=== PATIENT | female | born 1975 | race Caucasian/White ===

== ENCOUNTER 2019-10-28 16:05 | Outpatient (CLI) | payer OTHER, SELFPAY ==
--- NOTE | ~2019-10-28 | XR_ITS ---
EXAMINATION: XR chest 2V EXAM DATE: 10/28/2019 16:33 INDICATION: Pleurisy, painful inspiration. TECHNIQUE: Frontal and lateral projections of the chest obtained and reviewed. There is no prior kisha dy for comparison. FINDINGS: The lungs are clear. There are no pleural effusions. The cardiomediastinal silhouette is within normal limits. There is no pneumothorax suspected. The bones and soft tissues are unremarkab le. There are cholecystectomy clips. IMPRESSION: No acute cardiopulmonary findings. Reviewed, dictated and finalized at location A.
== END 2019-10-28 16:06 | disposition home or self-care (01) ==
LOC: ANHIMG 16:10
PROVIDERS: PCP Family Medicine; Visit Provider Family Medicine
DX: R07.1 Chest pain on breathing (principal)
CPT/HCPCS: 71046

== ENCOUNTER 2020-03-16 07:27 | Emergency (ER) | payer OTHER, SELFPAY ==
[2020-03-16 07:40] VITALS: BP 132/87; PULSE 71; RESP 18; TEMP 36.8; O2SAT 100
--- NOTE | 2020-03-16 07:40 | ED.NECK ---
HPI - Neck Pain/Injury General Chief Complaint: Neck Pain/Injury Stated Complaint: NECK AND BACK PAIN X2 WEEKS Time Seen by Provider: 03/16/20 07:40 History of Present Illness HPI Narrative: Pain on the left side of the neck for the past 2 weeks. Progressively worse. Spreading into the left trapezius and rhomboid. Pain is worse with movement of the arm or neck. Started after painting her kitchen. She has tried Motrin and Aleve without improvment. No trauma, weakness, numbness, fever. Related Data Allergies Allergy/AdvReac Type Severity Reaction Status Date / Time No Known Allergies Allergy Unverified 03/16/20 07:48 Review of Systems Review of Systems: All systems reviewed & are unremarkable except as noted in HPI and below Constitutional: Constitutional: Denies fever(s) and Denies weakness Cardiovascular: Cardiovascular: Denies chest pain Respiratory: Respiratory: Denies dyspnea Gastrointestinal: Gastrointestinal: Denies abdominal pain Genitourinary: Genitourinary: Denies flank pain Musculoskeletal: Musculoskeletal: Reports back pain Comments: neck pain Neurologic: Denies dizziness, Denies numbness and Denies weakness [facility] Family History Family History Grandparent Cerebrovascular accident Other Diabetes mellitus Family history of cardiovascular disease Family history of coronary artery disease Family history of gallbladder disease Family history of lupus erythematosus Family history of malignant neoplasm of breast Family history of malignant neoplasm of cervix Family history of malignant neoplasm of ovary Family history of primary malignant neoplasm of liver Social History Social History Second hand tobacco smoke exposure: No Alcohol intake: never Gender identity (if verbalized by the patient): Female Exam Const: General: healthy appearing, no acute distress and alert Orientation/consciousness: patient oriented x3 HENMT: Head: normal to inspection Neck: Neck: normal visual inspection Resp: Effort & Inspection: normal respiratory effort Auscultation: clear to auscultation bilaterally Cardio: Rate: regular rate Rhythm: regular rhythm GI: GI Palp: Yes Soft to palpation and No Tenderness to palpation present (GI) Course Vital Signs Vital signs: Vital Signs Temperature 36.8 C 03/16/20 07:40 Pulse Rate 71 03/16/20 07:40 Respiratory Rate 18 03/16/20 07:40 Blood Pressure 132/87 03/16/20 07:40 Pulse Oximetry 100 03/16/20 07:40 Temperature 36.8 C 03/16/20 07:40 Pulse Rate 77 03/16/20 10:10 Respiratory Rate 18 03/16/20 10:10 Blood Pressure 141/99 H 03/16/20 10:10 Pulse Oximetry 98 03/16/20 10:10 MDM - Neck Pain/Injury MDM Narrative Medical decision making narrative: No trauma, normal neuro exam. No indication for imaging. Mild improvement with valium. I will prescribe a few days worth and have her follow-up with her PCP. Medical Records Attestation: I reviewed the patient's medical records. Lab Data Attestation: I reviewed the patient's lab results. Imaging Data Attestation: I personally reviewed and interpreted this imaging study as follows: Discharge Plan Discharge Clinical Impression: Strain of neck muscle Qualifiers: Encounter type: initial encounter Qualified Code(s): S16.1XXA - Strain of muscle, fascia and tendon at neck level, initial encounter Patient Disposition: Home, Self-Care Condition: Stable Instructions: Cervical Strain (ED) Prescriptions: New diazepam [Valium] 2 mg tablet 2 - 4 mg PO TID PRN (Reason: muscle spasm) Qty: 15 RF: 0 methylprednisolone [Medrol (Marek)] 4 mg tablets,dose pack See Rx Instructions .ROUTE .COMPLEX Qty: 21 RF: 0 Follow-up/Referrals: Jerry Sanabria MD [Primary Care Provider] - Discharge Date/Time: 03/16/20 10:10
[2020-03-16] MEDS: ACETAMINOPHEN 500 MG TABLET 1000 MG PO (08:31)
[2020-03-16] MEDS: diazePAM INJ (*CRX) 10 MG/2 ML SYRINGE IM (08:32)
[2020-03-16 10:10] VITALS: BP 141/99; PULSE 77; RESP 18; O2SAT 98
== END 2020-03-16 10:10 | disposition home or self-care (01) ==
PROVIDERS: Emergency Provider Emergency Medicine; PCP Family Medicine
DX: S16.1XXA Strain of muscle, fascia and tendon at neck level, initial encounter (principal); X50.9XXA Other and unspecified overexertion or strenuous movements or postures, initial encounter
CPT/HCPCS: 96372; 99284; A9270; J1100; J3360

== ENCOUNTER 2020-03-19 10:16 | Outpatient (CLI) | payer OTHER, SELFPAY ==
--- NOTE | ~2020-03-19 | XR_ITS ---
XR cervical spine 4-5V DATE: 03/19/2020 10:40 INDICATION: Left-sided neck pain, radiculopathy. Tingling in hand. TECHNIQUE: AP, open-mouth, lateral, swimmer views COMPARISON: 07/16/2013 cervical spine FINDINGS: Normal alignment of the cervical spine. C1 and C2 are normally aligned and the odontoid pr ocess is intact. Cervical interspaces are well preserved. No prevertebral soft tissue swelling is d etected. IMPRESSION: Negative Reviewed, dictated and finalized at location B. IMPRESSION: Negative
== END 2020-03-19 10:17 | disposition home or self-care (01) ==
PROVIDERS: PCP Family Medicine; Visit Provider Family Medicine
DX: M54.12 Radiculopathy, cervical region (principal)
CPT/HCPCS: 72050

== ENCOUNTER 2021-06-15 13:56 | Emergency (ER) | payer OTHER, SELFPAY ==
--- NOTE | ~2021-06-15 | XR_ITS ---
EXAMINATION: XR chest 2V EXAM DATE: 06/15/2021 14:20 INDICATION: post covid cough sometimes productive TECHNIQUE: Frontal and lateral projections of the chest obtained and reviewed. Comparison is made to prior examination from 10/28/2019. FINDINGS: Some small left lung linear opacities probably atelectasis or scarring. The lungs are othe rwise clear. There are no pleural effusions. The cardiomediastinal silhouette is within normal limi ts. There is no pneumothorax suspected. The bones and soft tissues are unremarkable. There are cho lecystectomy clips. IMPRESSION: Small regions left mid and lower lung zone atelectasis or scarring. Reviewed, dictated and finalized at location A. [employer]
[2021-06-15 14:09] VITALS: BP 158/88; PULSE 114; RESP 16; TEMP 36.7; O2SAT 99
--- NOTE | 2021-06-15 14:47 | ED.URI ---
HPI - URI/Sore Throat General Chief Complaint: Upper Respiratory Infection Stated Complaint: COUGH Time Seen by Provider: 06/15/21 14:47 Source: patient, RN notes reviewed and old records reviewed Mode of arrival: ambulatory Limitations: no limitations History of Present Illness HPI Narrative: 45-year-old female who just got over Covid presents to the [facility] with complaints of a cough. Patient states that she was diagnosed with Covid. On June 06, tested positive with the PCR in June 07. States her symptoms started 03 June with a cough, congestion and just generalized fatigue. States she just cannot get rid of this cough and wants a further evaluation. Related Data Allergies Allergy/AdvReac Type Severity Reaction Status Date / Time No Known Allergies Allergy Unverified 03/16/20 07:48 Review of Systems Review of Systems: All systems reviewed & are unremarkable except as noted in HPI and below Constitutional: Constitutional: Reports no additional constitutional complaints, Denies chills and Denies fever(s) Eyes: Eyes: Reports no additional eye complaints ENT: Reports system reviewed and no additional complaints, except as documented and Denies sore throat Cardiovascular: Cardiovascular: Reports no additional cardiovascular complaints and Denies chest pain Respiratory: Respiratory: Reports as per HPI, Denies chest congestion, Reports cough, Denies dyspnea and Denies wheezing Gastrointestinal: Gastrointestinal: Reports no additional gastrointestinal complaints, Denies abdominal pain, Denies nausea and Denies vomiting Musculoskeletal: Musculoskeletal: Reports no additional musculoskeletal complaints and Denies back pain Integumentary/Breasts: Skin/Breast: Reports system reviewed and no additional complaints, except as docu Neurologic: Reports system reviewed and no additional complaints, except as documented Psychiatric: Psychiatric: Reports no additional psychiatric complaints Allergic/Immunologic: Allergic/Immunologic: Reports no additional allergic/immunologic complaints [facility] Past Medical History Medical History (Updated 06/15/21 @ 20:15 by Norma Ames) Patient denies significant medical history Surgical History Surgical History (Updated 06/15/21 @ 20:15 by Norma Ames) No pertinent past surgical history Family History Family History Grandparent Cerebrovascular accident Other Diabetes mellitus Family history of cardiovascular disease Family history of coronary artery disease Family history of gallbladder disease Family history of lupus erythematosus Family history of malignant neoplasm of breast Family history of malignant neoplasm of cervix Family history of malignant neoplasm of ovary Family history of primary malignant neoplasm of liver Social History Social History Second hand tobacco smoke exposure: No Alcohol intake: never Gender identity (if verbalized by the patient): Female Comments At the time of my signature, I reviewed and agree with the nursing past medical, surgical, social, and family history. There is no relevant family history pertinent to the patient complaint. Exam Const: General: healthy appearing, no acute distress and alert Nutritional Appearance: well nourished and obese Orientation/consciousness: patient oriented x3 Limitations: no limitations HENMT: Head: normal to inspection Ears: external ears normal, TM's normal bilaterally and EAC's normal Eyes: Conjunctivae: conjunctivae normal Pupils: Equal, round and reactive pupils present Neck: Neck: normal visual inspection, no lymphadenopathy and no meningeal signs Chest: Chest palpation & inspection: normal inspection of the chest Resp: Effort & Inspection: normal respiratory effort and no use of accessory muscles Auscultation: clear to auscultation bilaterally, no crackles, no rales, no
== END 2021-06-15 15:02 | disposition home or self-care (01) ==
PROVIDERS: Emergency Provider Nurse Practitioner
DX: J98.11 Atelectasis (principal); J40 Bronchitis, not specified as acute or chronic
CPT/HCPCS: 71046; 99213; G0463

== ENCOUNTER 2022-02-17 17:17 | Emergency (ER) | payer OTHER, SELFPAY ==
[2022-02-17 17:24] VITALS: BP 132/83; PULSE 79; RESP 16; TEMP 37; O2SAT 100
--- NOTE | 2022-02-17 17:56 | ED.EAR ---
HPI - Ear Problem General Chief complaint: Ear Stated complaint: ear pain Time Seen by Provider: 02/17/22 17:34 Source: patient Mode of arrival: ambulatory Limitations: no limitations History of Present Illness HPI Narrative: 46-year-old female who presents to [facility] care with complaints of ear pain for one day duration with right ear starting yesterday and her left ear starting today. Patient verbalizes past history of ear problems reports that she has never had ear tubes. Patient reports some nasal congestion and drainage has been using flonase and Claritin for these symptoms and oral analgesic OTC for her ear pain. MD Complaint: ear pain and other (sinus drainage and congestion) Location: bilateral Duration: constant Severity: severe Discharge from ear: Reports no Treatment prior to arrival: oral analgesic Related Data Allergies Allergy/AdvReac Type Severity Reaction Status Date / Time No Known Allergies Allergy Unverified 02/17/22 17:32 Review of Systems Review of Systems: CONSTITUTIONAL: Denies fever, chills, or sweats. EYES: Denies visual changes, redness, or discharge. ENT: Positive for rhinorrhea, congestion,no sore throat, positive for bilateral otalgia. CARDIOVASCULAR: Denies chest pain, palpitations, or edema. RESPIRATORY: Denies cough or dyspnea. GASTROINTESTINAL: Denies abdominal pain, nausea, vomiting, or diarrhea. GENITOURINARY: Denies dysuria or hematuria. SKIN: Denies rash or itching. MUSCULOSKELETAL: Denies back pain, joint pain, or myalgia. NEUROLOGIC: Denies headache, numbness, or weakness. PSYCHIATRIC: Denies anxiety or depression. All systems reviewed & are unremarkable except as noted in HPI and below PMFSH Past Medical History Medical History (Updated 02/20/22 @ 12:46 by Theresa Canada NP) Endometriosis Finger amputation, traumatic Kidney stone Surgical History Surgical History (Updated 02/20/22 @ 12:42 by Theresa Canada NP) H/O: hysterectomy History of cholecystectomy Hx of appendectomy Family History Family History Grandparent Cerebrovascular accident Other Diabetes mellitus Family history of cardiovascular disease Family history of coronary artery disease Family history of gallbladder disease Family history of lupus erythematosus Family history of malignant neoplasm of breast Family history of malignant neoplasm of cervix Family history of malignant neoplasm of ovary Family history of primary malignant neoplasm of liver Social History Social History Second hand tobacco smoke exposure: No Alcohol intake: never Gender identity (if verbalized by the patient): Female Comments At time of signature, agree with nursing past medical, surgical, social and family history. There is no relevant family history pertinent to the presenting complaint Exam Narrative: GENERAL: Well-appearing, well-nourished, and in no acute distress. HEAD: Normocephalic, atraumatic. EYES: PERRLA and EOMI. ENT: Nares with mild redness, clear rhinorrhea no epistaxis. Mucous membranes moist.TM's red and bulging no drainage noted,Throat pink with no redness or lesions or tonsil swelling NECK: Supple.no lymphadenopathy CHEST: Clear to auscultation. No respiratory distress.SAO2 100% on room air HEART: Regular rate and rhythm. No murmur heard. Normal peripheral pulses. ABDOMEN: Soft, nontender, nondistended, normal active bowel sounds. EXTREMITIES: Normal range of motion. No edema. SKIN: Warm, dry, no rash. NEURO: No focal deficits. Alert and oriented x3. Course Course Level of Care: Express Care Visit Vital Signs Vital signs: Vital Signs Temperature 37.0 C 02/17/22 17:24 Pulse Rate 79 02/17/22 17:24 Respiratory Rate 16 02/17/22 17:24 Blood Pressure 132/83 02/17/22 17:24 Pulse Oximetry 100 02/17/22 17:24 Oxygen Delivery Room Air 02/17/22 17:24
== END 2022-02-17 18:11 | disposition home or self-care (01) ==
PROVIDERS: Emergency Provider Registered Nurse
DX: H66.93 Otitis media, unspecified, bilateral (principal); N80.9 Endometriosis, unspecified
CPT/HCPCS: 99213; G0463

== ENCOUNTER 2022-07-18 09:00 | Emergency (ER) | payer OTHER, SELFPAY ==
--- NOTE | 2022-07-18 09:03 | ED.URI ---
HPI - URI/Sore Throat General Chief Complaint: Upper Respiratory Infection Stated Complaint: SINUS ISSUES Time Seen by Provider: 07/18/22 09:11 Source: patient, RN notes reviewed and old records reviewed Mode of arrival: ambulatory Limitations: no limitations History of Present Illness HPI Narrative: 46-year-old female presents to the [facility] sinus congestion for 4 days. Reports productive cough. Has been using her Flonase and taking [place] cold and flu Denies fevers. Denies sore throat. Reports that her ears are popping as well. Has a history of ear infections Took a COVID test prior to arrival which she reports is neck MD elicited complaint: cough and nasal congestion Onset (ago): day(s) (4) Able to tolerate fluids by mouth: Yes Exacerbating factors: nothing Treatments prior to arrival: cold medicine Related Data Allergies Allergy/AdvReac Type Severity Reaction Status Date / Time No Known Allergies Allergy Verified 07/18/22 09:03 Review of Systems Review of Systems: All systems reviewed & are unremarkable except as noted in HPI and below Constitutional: Constitutional: Reports no additional constitutional complaints Eyes: Eyes: Reports no additional eye complaints ENT: Reports as per HPI and Reports nasal congestion Cardiovascular: Cardiovascular: Reports no additional cardiovascular complaints, Denies chest pain and Denies dyspnea Respiratory: Respiratory: Reports as per HPI, Reports no additional respiratory complaints, Denies chest congestion, Reports cough and Denies dyspnea Gastrointestinal: Gastrointestinal: Reports no additional gastrointestinal complaints, Denies abdominal pain, Denies nausea and Denies vomiting Musculoskeletal: Musculoskeletal: Reports no additional musculoskeletal complaints Integumentary/Breasts: Skin/Breast: Reports system reviewed and no additional complaints, except as docu Neurologic: Reports system reviewed and no additional complaints, except as documented Psychiatric: Psychiatric: Reports no additional psychiatric complaints Allergic/Immunologic: Allergic/Immunologic: Reports no additional allergic/immunologic complaints PMFSH Past Medical History Medical History Endometriosis Finger amputation, traumatic Kidney stone Surgical History Surgical History H/O: hysterectomy History of cholecystectomy Hx of appendectomy Family History Family History Grandparent Cerebrovascular accident Other Diabetes mellitus Family history of cardiovascular disease Family history of coronary artery disease Family history of gallbladder disease Family history of lupus erythematosus Family history of malignant neoplasm of breast Family history of malignant neoplasm of cervix Family history of malignant neoplasm of ovary Family history of primary malignant neoplasm of liver Social History Social History Second hand tobacco smoke exposure: No Alcohol intake: never Gender identity (if verbalized by the patient): Female Comments At the time of my signature, I reviewed and agree with the nursing past medical, surgical, social, and family history. There is no relevant family history pertinent to the patient complaint. Exam Const: General: cooperative, healthy appearing, comfortable, no acute distress, well developed, alert and well nourished Nutritional Appearance: well nourished Orientation/consciousness: patient oriented x3 Limitations: no limitations HENMT: Head: normal to inspection Ears: hearing grossly normal bilaterally, external ears normal and TM's normal bilaterally Face/Nose/Sinus: Normal external nose present, Normal nares present, Normal nasal mucous membranes and turbinates present, Nasal discharge present clear bilateral, normal
[2022-07-18 09:06] VITALS: BP 152/73; PULSE 80; RESP 16; TEMP 36.4; O2SAT 100
== END 2022-07-18 09:24 | disposition home or self-care (01) ==
PROVIDERS: Emergency Provider Nurse Practitioner
DX: J32.9 Chronic sinusitis, unspecified (principal); N80.9 Endometriosis, unspecified
CPT/HCPCS: 99213; G0463

== ENCOUNTER 2022-07-29 18:15 | Emergency (ER) | payer OTHER, SELFPAY ==
--- NOTE | 2022-07-29 18:16 | ED.EAR ---
HPI - Ear Problem General Chief complaint: Ear Stated complaint: Trouble hearing from left ear Time Seen by Provider: 07/29/22 18:24 Source: patient and RN notes reviewed Mode of arrival: ambulatory Limitations: no limitations History of Present Illness HPI Narrative: 46 year old female presents with concern for left ear pain. Reports she had a viral infection last week with sinus congestion and pressure. Those symptoms have improved, but she started having ear pain today. She has taken dayquil today. MD Complaint: ear pain Related Data Allergies Allergy/AdvReac Type Severity Reaction Status Date / Time No Known Allergies Allergy Verified 07/29/22 18:23 Review of Systems Review of Systems: CONSTITUTIONAL: Denies malaise, chills, sweats, or fever. EYES: Denies visual changes, redness, or discharge. ENT: Denies rhinorrhea, congestion, sinus pain, and sore throat. Reports left ear pain CARDIOVASCULAR: Denies chest pain, palpitations, or edema. RESPIRATORY: Denies cough. Denies dyspnea. GASTROINTESTINAL: Denies abdominal pain, nausea, vomiting, diarrhea SKIN: Denies rash or itching. MUSCULOSKELETAL: Denies myalgia. NEUROLOGIC: Denies headache. All systems reviewed & are unremarkable except as noted in HPI and below PMFSH Past Medical History Medical History Endometriosis Finger amputation, traumatic Kidney stone Surgical History Surgical History H/O: hysterectomy History of cholecystectomy Hx of appendectomy Family History Family History Grandparent Cerebrovascular accident Other Diabetes mellitus Family history of cardiovascular disease Family history of coronary artery disease Family history of gallbladder disease Family history of lupus erythematosus Family history of malignant neoplasm of breast Family history of malignant neoplasm of cervix Family history of malignant neoplasm of ovary Family history of primary malignant neoplasm of liver Social History Social History Second hand tobacco smoke exposure: No Alcohol intake: never Gender identity (if verbalized by the patient): Female Comments At time of signature, agree with nursing past medical, surgical, social and family history. There is no relevant family history pertinent to the presenting complaint Exam Narrative: GENERAL: Well-appearing, well-nourished, and in no acute distress. HEAD: Normocephalic EYES: PERRLA, conjunctivae clear ENT: Nares clear. Mucous membranes moist. Right TM pearly valdez with dull light reflex, left TM erythematous and bulging; no tragal tenderness. Oropharynx not erythematous without lesions. Tonsils not enlarged and without exudate, no drooling, no hoarseness, no trismus, uvula midline. NECK: Supple. No lymphadenopathy CHEST: Clear to auscultation, breath sounds equal. No wheezing, rhonchi, rales, or stridor. No respiratory distress, speaks in full sentences. HEART: Regular rate and rhythm. No murmur heard. SKIN: Warm, dry, no rash. NEURO: Alert and oriented x3. PSYCH: Normal mood and affect Course Course Emergency Course: Patient is aware of diagnosis, understands and agrees to treatment plan. Anticipatory guidance given. Patient agrees to follow-up as directed and is aware of reasons to seek care at the emergency department. Portions of this record may have been created with voice recognition software Level of Care: Express Care Visit Vital Signs Vital signs: Reviewed. Medical Decision Making MDM Narrative Medical decision making narrative: Differential diagnosis considered: Arizmendi virus, strep pharyngitis, allergic rhinitis, upper respiratory tract infection, sinusitis, rhinosinusitis, nasopharyngitis. viral pharyngitis, otitis media, otitis externa, otitis effusion, cerumen im
[2022-07-29 18:24] VITALS: BP 155/100; PULSE 77; RESP 14; TEMP 36.8; O2SAT 100
== END 2022-07-29 18:33 | disposition home or self-care (01) ==
PROVIDERS: Emergency Provider Nurse Practitioner
DX: H66.92 Otitis media, unspecified, left ear (principal)
CPT/HCPCS: 99213; G0463

== ENCOUNTER 2022-08-09 10:22 | Emergency (ER) | payer OTHER, SELFPAY ==
--- NOTE | ~2022-08-09 | XR_ITS ---
XR ribs RT 2V 08/09/2022 11:40 Indication: Right rib pain Procedure: 3 views right RIBS Comparison: 06/15/2021 Findings: There is a nondisplaced right 10th rib fracture. Lungs are clear. No pneumothorax. There ar e cholecystectomy clips. Impression: 1: Nondisplaced acute right 10th rib fracture. Reviewed, dictated and finalized at location L. [employer] Impression: 1: Nondisplaced acute right 10th rib fracture.
[2022-08-09 11:00] VITALS: BP 134/78; PULSE 91; RESP 16; TEMP 36.9; O2SAT 98
--- NOTE | 2022-08-09 11:37 | ED.FALL ---
HPI - Fall General Chief Complaint: Fall Stated Complaint: right side pain Time Seen by Provider: 08/09/22 11:37 Source: patient Mode of arrival: ambulatory Limitations: no limitations History of Present Illness HPI Narrative: 46-year-old female presents with complaint of pain to right ribs. Patient states that yesterday she was walking up stairs and her dogs rate up the stairs and tripped her causing her to fall backwards into that dog gate. Patient reports right rib pain since. Is taking ibuprofen and Flexeril without relief of pain. Denies shortness of breath. Ambulatory with steady gait. Patient denies head injury. all systems reviewed and negative except as noted above. Related Data Allergies Allergy/AdvReac Type Severity Reaction Status Date / Time No Known Allergies Allergy Verified 07/29/22 18:23 Review of Systems Review of Systems: CONSTITUTIONAL: Denies fever, chills, or sweats. EYES: Denies visual changes, redness, or discharge. ENT: Denies rhinorrhea, congestion, sore throat, or otalgia. CARDIOVASCULAR: Denies chest pain, palpitations, or edema. RESPIRATORY: Denies cough or dyspnea. GASTROINTESTINAL: Denies abdominal pain, nausea, vomiting, or diarrhea. GENITOURINARY: Denies dysuria or hematuria. SKIN: Denies rash or itching. MUSCULOSKELETAL: Denies back pain, joint pain, or myalgia. Reports pain to right ribs. NEUROLOGIC: Denies headache, numbness, or weakness. PSYCHIATRIC: Denies anxiety or depression. All other systems reviewed are negative, except as documented in HPI. [facility] [place] Past Medical History Medical History Endometriosis Finger amputation, traumatic Kidney stone Surgical History Surgical History H/O: hysterectomy History of cholecystectomy Hx of appendectomy Family History Family History Grandparent Cerebrovascular accident Other Diabetes mellitus Family history of cardiovascular disease Family history of coronary artery disease Family history of gallbladder disease Family history of lupus erythematosus Family history of malignant neoplasm of breast Family history of malignant neoplasm of cervix Family history of malignant neoplasm of ovary Family history of primary malignant neoplasm of liver Social History Social History (Reviewed 07/18/22 @ 09:05 by CHRIS Barnes Second hand tobacco smoke exposure: No Alcohol intake: never Gender identity (if verbalized by the patient): Female Comments At time of signature, agree with nursing past medical, surgical, social and family history. There is no relevant family history pertinent to the presenting complaint. Exam Narrative: GENERAL: This is a well-nourished, well-developed patient, in no apparent distress. HEAD: normocephalic, atraumatic. EYES: PERRL. Sclera clear/white. Vision is grossly intact. EARS: External ears normal NOSE: External nose normal NECK: Neck supple, non-tender without lymphadenopathy, masses or thyromegaly. CARDIOVASCULAR: Regular rate and rhythm without murmurs, gallops, or rubs. RESPIRATORY: Clear to auscultation. Breath sounds equal bilaterally. No wheezes, rales, or rhonchi. SKIN: warm, Dry, intact with no suspicious lesions or rash, good texture and turgor. NEURO: awake, alert, and oriented to person, place and time. There were no obvious focal neurologic abnormalities. EXTREMITIES: No joint tenderness, effusion, or edema noted. Musculoskeletal: tenderness to R lateral ribs 9th and 10th Course Course Level of Care: Express Care Visit Vital Signs Vital signs: Vital Signs Temperature 36.9 C 08/09/22 11:00 Pulse Rate 91 08/09/22 11:00 Respiratory Rate 16 08/09/22 11:00 Blood Pressure 134/78 08/09/22 11:00 Pulse Oximetry 98 08/09/22 11:00 Oxygen Delivery Room Air 08/09/22 11:00 Tem
[2022-08-09] MEDS: KETOROLAC (*BKC) 60 MG/2 ML VIAL IM (12:16)
== END 2022-08-09 12:44 | disposition home or self-care (01) ==
PROVIDERS: Emergency Provider Nurse Practitioner Family
DX: S22.31XA Fracture of one rib, right side, initial encounter for closed fracture (principal); W10.9XXA Fall (on) (from) unspecified stairs and steps, initial encounter; N80.9 Endometriosis, unspecified
CPT/HCPCS: 71100; 96372; 99213; G0463; J1885

== ENCOUNTER 2023-01-24 12:16 | Emergency (ER) | payer OTHER, SELFPAY ==
--- NOTE | 2023-01-24 12:24 | ED.EYEPROB ---
HPI - Eye Problem General Chief complaint: Eye Problems Stated complaint: Bilateral Eye Irritation Time Seen by Provider: 01/24/23 12:35 Source: patient and RN notes reviewed Mode of arrival: ambulatory Limitations: no limitations History of Present Illness HPI Narrative: 47-year-old female presents concern with bilateral eyelid itchiness. She reports she has been dealing with allergies badly for 2 weeks. Reports yesterday she noticed dry patches on bilateral eyelids and then last night they became extremely itchy and slightly swollen. She denies any drainage from her eyes. Reports her eyes themselves are not particularly itchy. She denies any other swelling, itchiness. Reports she is taking Zyrtec, and tried triple antibiotic ointment yesterday. Denies other intervention MD chief complaint: other (Eyelid itchiness) Related Data Home Medications Medication Instructions Recorded Confirmed cetirizine 10 mg capsule (Zyrtec) mg 01/24/23 Allergies Allergy/AdvReac Type Severity Reaction Status Date / Time No Known Allergies Allergy Verified 07/29/22 18:23 Review of Systems Review of Systems: CONSTITUTIONAL: Denies malaise, chills, sweats, or fever. EYES: Denies visual changes. Denies eye redness, discharge. ENT: Denies rhinorrhea, congestion, sinus pain, otalgia or sore throat. SKIN: Reports bilateral eyelid itching NEUROLOGIC: Denies numbness, weakness, or headache. PSYCHIATRIC: Denies anxiety or depression. All systems reviewed & are unremarkable except as noted in HPI and below PMFSH Past Medical History Medical History Endometriosis Finger amputation, traumatic Kidney stone Surgical History Surgical History H/O: hysterectomy History of cholecystectomy Hx of appendectomy Family History Family History Grandparent Cerebrovascular accident Other Diabetes mellitus Family history of cardiovascular disease Family history of coronary artery disease Family history of gallbladder disease Family history of lupus erythematosus Family history of malignant neoplasm of breast Family history of malignant neoplasm of cervix Family history of malignant neoplasm of ovary Family history of primary malignant neoplasm of liver Social History Social History Second hand tobacco smoke exposure: No Alcohol intake: never Gender identity (if verbalized by the patient): Female Comments At time of signature, agree with nursing past medical, surgical, social and family history. There is no relevant family history pertinent to the presenting complaint Exam Narrative: GENERAL: Well-appearing, well-nourished, and in no acute distress. HEAD: Normocephalic, atraumatic. EYES: PERRLA, sclera clear, and EOMI. No nystagmus. Bilateral conjunctivae clear. Lower eyelid unremarkable, no periorbital edema noted ENT: Nares clear, turbinates pink, no rhinorrhea or epistaxis. Mucous membranes moist. TM pearly valdez with sharp light reflex bilaterally; no tragal tenderness. NECK: Supple. CHEST: No respiratory distress. Speaks in full sentences. HEART: Regular rate and rhythm. SKIN: Warm, dry. Bilateral upper lids erythematous, slightly edematous with dry appearing skin consistent with dermatitis NEURO: Alert and oriented x3. PSYCH: Normal mood and affect Course Course Emergency Course: Patient is aware of diagnosis, understands and agrees to treatment plan. Anticipatory guidance given. Patient agrees to follow-up as directed and is aware of reasons to seek care at the emergency department. Portions of this record may have been created with voice recognition software Level of Care: Express Care Visit Vital Signs Vital signs: Reviewed. MDM - Eye Problem MDM Narrative Medical decision
[2023-01-24 12:25] VITALS: BP 130/94; PULSE 89; RESP 16; TEMP 36.4; O2SAT 100
[2023-01-24 12:28] VITALS: BP 130/94; PULSE 89; RESP 16; TEMP 36.4; O2SAT 100
--- NOTE | 2023-01-24 12:29 | PC.NURSE ---
BP taken in both arms
== END 2023-01-24 12:41 | disposition home or self-care (01) ==
PROVIDERS: Emergency Provider Nurse Practitioner; PCP Family Medicine
DX: L30.9 Dermatitis, unspecified (principal); N80.9 Endometriosis, unspecified
CPT/HCPCS: 99213; G0463

== ENCOUNTER 2023-05-12 12:42 | Emergency (ER) | payer OTHER, SELFPAY ==
--- NOTE | 2023-05-12 12:47 | ED.EYEPROB ---
HPI - Eye Problem General Chief complaint: Eye Problems Stated complaint: reaction on upper eyelids Time Seen by Provider: 05/12/23 12:46 Source: patient Mode of arrival: ambulatory Limitations: no limitations History of Present Illness HPI Narrative: Sharon is a 47-year-old female patient presenting to the clinic today with complaints of rash on the upper eyelids x1 day. She reports she put on some makeup yesterday that caused her to have an allergic reaction. Has swelling and itchy to the bilateral upper eyelids Related Data Allergies Allergy/AdvReac Type Severity Reaction Status Date / Time No Known Allergies Allergy Verified 05/12/23 13:00 Review of Systems Review of Systems: Pertinent positives per HPI. Patient denies any fever, chills, rash, headache, visual changes, dizziness, cough, runny nose, sore throat, shortness of breath, chest pain, palpitations, nausea, vomiting, diarrhea, constipation, abdominal pain, or any urinary issues. PMFSH Past Medical History Medical History Endometriosis Finger amputation, traumatic Kidney stone Surgical History Surgical History H/O: hysterectomy History of cholecystectomy Hx of appendectomy Family History Family History Grandparent Cerebrovascular accident Other Diabetes mellitus Family history of cardiovascular disease Family history of coronary artery disease Family history of gallbladder disease Family history of lupus erythematosus Family history of malignant neoplasm of breast Family history of malignant neoplasm of cervix Family history of malignant neoplasm of ovary Family history of primary malignant neoplasm of liver Social History Social History Second hand tobacco smoke exposure: No Alcohol intake: never Gender identity (if verbalized by the patient): Female Comments At the time of my signature, I reviewed and agree with the nursing past medical, surgical, social, and family history. There is no relevant family history pertinent to the patient complaint. Exam Narrative: General: Well-developed, well nourished, in no apparent distress Head: Normocephalic, atraumatic Eyes: Pupils equally round and reactive to light bilaterally, EOM intact, sclera and conjunctive clear, no discharge, swelling, redness, and itching to the bilateral upper eyelids Ears: TMs intact and clear, ear canals clear, no drainage, grossly hearing normal. Nose: Nares patent, no discharge, no inflammation, no sinus tenderness. Mouth: Oropharynx without lesions or masses, good dentition, MMM. Neck: Supple, trachea midline, no enlargement of anterior or posterior cervical nodes, no thyroid masses or goiter palpable. Cardio: Regular rate and rhythm, s1 and s2 normal, no murmur appreciated. Resp: Clear to auscultation bilaterally anteriorly and posteriorly, no rhonchi, rales, wheezing or rubs Course Course Emergency Course: Portions of this record may have been created with voice recognition software. Level of Care: Express Care Visit Vital Signs Vital signs: Vital signs reviewed MDM - Eye Problem MDM Narrative Medical decision making narrative: At the time of visit patient is resting comfortably on the exam table. Differential Diagnosis Differential diagnosis: Likely corneal abrasion, conjunctivitis, acute iritis, periorbital cellulitis and other (Eyelid dermatitis, blepharitis) Discharge Plan Discharge Clinical Impression: Allergic dermatitis eyelid Qualifiers: Laterality: bilateral Eyelid: upper Qualified Code(s): H01.111 - Allergic dermatitis of right upper eyelid Patient Disposition: Home, Self-Care Condition: Stable Instructions: Antibiotic Form, Contact Dermatitis (ED) Additional Instructi
[2023-05-12 12:54] VITALS: BP 143/83; PULSE 83; RESP 16; TEMP 36.8; O2SAT 98
== END 2023-05-12 13:05 | disposition home or self-care (01) ==
PROVIDERS: Emergency Provider Nurse Practitioner Family; PCP Family Medicine
DX: L23.2 Allergic contact dermatitis due to cosmetics (principal); N80.9 Endometriosis, unspecified
CPT/HCPCS: 99213; G0463

== ENCOUNTER 2023-07-12 17:35 | Emergency (ER) | payer OTHER, SELFPAY ==
--- NOTE | 2023-07-12 17:38 | ED.EAR ---
HPI - Ear Problem General Chief complaint: Ear Stated complaint: Left Ear Irritation Time Seen by Provider: 07/12/23 17:36 Source: patient Mode of arrival: ambulatory Limitations: no limitations History of Present Illness HPI Narrative: Sharon is a 47-year-old female patient presenting to clinic today with complaints of left ear pain that started around noon today. States that she has taken some Tylenol/Sudafed for the pain. Reports she saw her doctor last week for URI symptoms and he gave her a prescription for prednisone could as he states she gets recurrent ear infections when she has a URI. Related Data Home Medications Medication Instructions Recorded Confirmed acyclovir 400 mg tablet 400 mg PO DIRECTED PRN Cold 07/12/23 07/12/23 Sores Allergies Allergy/AdvReac Type Severity Reaction Status Date / Time adhesive tape AdvReac Itching Verified 07/12/23 17:47 Review of Systems Review of Systems: Pertinent positives per HPI. Patient denies any fever, chills, rash, headache, visual changes, dizziness, cough, shortness of breath, chest pain, palpitations, nausea, vomiting, diarrhea, constipation, abdominal pain, or any urinary issues. [facility] Past Medical History Medical History Endometriosis Finger amputation, traumatic Kidney stone Surgical History Surgical History H/O: hysterectomy History of cholecystectomy Hx of appendectomy Family History Family History Grandparent Cerebrovascular accident Other Diabetes mellitus Family history of cardiovascular disease Family history of coronary artery disease Family history of gallbladder disease Family history of lupus erythematosus Family history of malignant neoplasm of breast Family history of malignant neoplasm of cervix Family history of malignant neoplasm of ovary Family history of primary malignant neoplasm of liver Social History Social History Second hand tobacco smoke exposure: No Alcohol intake: never Gender identity (if verbalized by the patient): Female Comments At the time of my signature, I reviewed and agree with the nursing past medical, surgical, social, and family history. There is no relevant family history pertinent to the patient complaint. Exam Narrative: General: Well-developed, well nourished, in no apparent distress Head: Normocephalic, atraumatic Eyes: Pupils equally round and reactive to light bilaterally, EOM intact, sclera and conjunctive clear, no discharge, lids normal Ears: Right tMs intact and clear, left TM intact, bulging, red, ear canals clear, no drainage, grossly hearing normal. Nose: Nares patent, clear discharge, no inflammation, no sinus tenderness. Mouth: Oral pharynx without lesions or masses, good dentition, MMM. Neck: Supple, trachea midline, no enlargement of anterior or posterior cervical nodes, no thyroid masses or goiter palpable. Cardio: Regular rate and rhythm, s1 and s2 normal, no murmur appreciated. Resp: Clear to auscultation bilaterally, no rhonchi, rales, wheezing or rubs Course Course Emergency Course: Portions of this record may have been created with voice recognition software. Level of Care: Express Care Visit Vital Signs Vital signs: Vital signs reviewed Medical Decision Making MDM Narrative Medical decision making narrative: At the time of visit patient is resting comfortably on the exam table. Patient appears to be nontoxic. Plan: I suspect patient has acute otitis media of the left ear. Will place the patient on amoxicillin and prednisone. Supportive measures were discussed with the patient and they voiced understanding discharge instructions and agrees to treatment plan. Return precautions reviewed Different
[2023-07-12 17:43] VITALS: BP 132/89; PULSE 79; RESP 18; TEMP 37.1; O2SAT 100
== END 2023-07-12 17:55 | disposition home or self-care (01) ==
PROVIDERS: Emergency Provider Nurse Practitioner Family; PCP Family Medicine
DX: H66.002 Acute suppurative otitis media without spontaneous rupture of ear drum, left ear (principal); N80.9 Endometriosis, unspecified
CPT/HCPCS: 99213; G0463

== ENCOUNTER 2023-11-08 13:34 | Emergency (ER) | payer OTHER, SELFPAY ==
--- NOTE | ~2023-11-08 | XR_ITS ---
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 This may be the source of low back pain. Included lower thoracic and lumbar pedicles are intact. No fracture or bone destruction is evident. L umbar interspaces appear well preserved. There is slight degenerative spurring in the mid and lower l umbar spine. The sacroiliac joints are intact. Radiopaque sutures, right lower quadrant. Surgical clips of upper abdomen noted on lateral view, like ly due to cholecystectomy. 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 IMPRESSION: Transitional fifth lumbar vertebra with sacralization pseudoarthros is on the left Minimal degenerative change of the lumbar spine
[2023-11-08 13:42] VITALS: BP 153/88; PULSE 92; RESP 16; TEMP 37.2; O2SAT 99
--- NOTE | 2023-11-08 14:18 | ED.BACK ---
HPI - Back Pain/Injury General Chief Complaint: Back Pain/Injury Stated Complaint: Lower Back Pain Source: patient Mode of arrival: ambulatory Limitations: no limitations History of Present Illness HPI Narrative: 47-year-old female presented for complaint of left lower back pain for about 3 days. Denies specific known injury. She states she has been sitting on a bar stool for about 6 hours every evening while studying, also sits while at work during the day. Pain radiates from the left hip up the flank. Has not taken anything for pain today. Took Excedrin and muscle relaxer yesterday. Denies pain radiating into the hips or legs, numbness, tingling, weakness of the lower extremities, or change in gait, saddle paresthesia or loss of bowel or bladder. Denies abdominal pain, constipation, urinary complaints, fevers or chills. Related Data Allergies Allergy/AdvReac Type Severity Reaction Status Date / Time adhesive tape AdvReac Itching Verified 07/12/23 17:47 Review of Systems Review of Systems: CONSTITUTIONAL: Denies body aches, fever, chills EYES: Denies visual changes CARDIOVASCULAR: Denies chest pain, palpitations, or edema. RESPIRATORY: Denies cough or dyspnea. GASTROINTESTINAL: Denies abdominal pain, nausea, vomiting, or diarrhea. SKIN: Denies rash, itching, or wounds. MUSCULOSKELETAL: reports back pain NEUROLOGIC: Denies headache, numbness, tingling, or weakness. All systems reviewed & are unremarkable except as noted in HPI and below PMFSH Past Medical History Medical History Endometriosis Finger amputation, traumatic Kidney stone Surgical History Surgical History H/O: hysterectomy History of cholecystectomy Hx of appendectomy Family History Family History Grandparent Cerebrovascular accident Other Diabetes mellitus Family history of cardiovascular disease Family history of coronary artery disease Family history of gallbladder disease Family history of lupus erythematosus Family history of malignant neoplasm of breast Family history of malignant neoplasm of cervix Family history of malignant neoplasm of ovary Family history of primary malignant neoplasm of liver Social History Social History Second hand tobacco smoke exposure: No Alcohol intake: never Gender identity (if verbalized by the patient): Female Comments At time of signature, I have reviewed and agree with nursing past medical, surgical, social and family history unless otherwise noted. Please see nursing chart for further information. There is no relevant family history pertinent to the presenting complaint Exam Narrative: GENERAL: Appears in pain, in no acute distress. CHEST: Speaks in full sentences. No respiratory distress. HEART: Regular rate and rhythm. Normal and equal peripheral pulses. MUSC: Left lumbar para spinal tenderness, CVA tenderness. No Vertebral point tenderness. BLEs with normal strength and sensation, normal range of motion; endorses pain with any movement. No open wounds, or obvious deformity; alignment normal, pulse palpable and equal bilaterally, skin warm, dry, pink. Capillary refill less than 3 seconds. Gait steady. SKIN: Warm, dry, no rash. NEURO: Alert and oriented x3. Back/Spine/Pelvis: Back/spine/pelvis image: 1. area of pain Course Course Emergency Course: Patient is aware of diagnosis, understands and agrees to treatment plan. Anticipatory guidance given. Patient agrees to follow-up as directed and is aware of reasons to seek care at the emergency department. Portions of this record may have been created with voice recognition software Level of Care: Express Care Visit Vital Signs Vital signs: Vital Signs Temperature 98.9 F 11/08/23 13:42
== END 2023-11-08 15:27 | disposition home or self-care (01) ==
PROVIDERS: Emergency Provider Nurse Practitioner Family; PCP Family Medicine
DX: M54.50 Low back pain, unspecified (principal); N80.9 Endometriosis, unspecified; Z87.442 Personal history of urinary calculi
CPT/HCPCS: 72100; 81003; 87086; 87088; 99213; G0463

== ENCOUNTER 2024-07-31 12:26 | Emergency (ER) | payer OTHER, SELFPAY ==
--- OUTSIDE RECORDS SUMMARY | 2024-07-31 12:29 | XMS_ITS | Clinical Summary ---
Author Organization [facility] at the Medical Office Building Address [address] [place] [phone] Care Team Providers Care Veterans Services Specialist Name Role Phone Andrés Bran MD Primary Care Provider + Allergies Active Allergy Reactions Criticality Noted Date Comments Hydromorphone Itching Low 10/12/2020 Medications cetirizine (ZyrTEC) 10 mg tabletIndicatio ns:Chronic middle ear effusion, bilateral Take 1 tablet (10 mg total) by mouth daily as needed for allergies 90 tablet 4 4 08/08/19 25 Active fluticasone propionate (FLONASE) 50 mcg/actuation nasal sprayIndication s:Chronic middle ear effusion, bilateral Administer 2 sprays into each nostril daily 3 each 4 4 Active albuterol HFA (PROVENTIL HFA,VENTOLIN HFA,PROAIR HFA) 90 mcg/actuation inhalerIndicati ons:Chronic cough Inhale 2 puffs every 6 (six) hours as needed for wheezing or shortness of breath 1 each 4 5 07/02/19 26 Active predniSONE (DELTASONE) 20 mg tabletIndicatio ns:Chronic cough Take 2 tablets (40 mg) by mouth daily for 5 days 10 tablet 5 07/07/19 25 doxycycline (VIBRAMYCIN) 100 mg capsuleIndicati ons:Acute non-recurrent maxillary sinusitis Take 1 tablet/capsule (100 mg total) by mouth 2 (two) times a day for 10 days 20 tablet/capsu le 5 07/12/19 25 Active Problems Problem Noted Date Diagnosed Date Acute nasopharyngitis 05/21/2024 Assessment & Plan (05/21/2024 1:30 PM INDUSTRIAL HEALTH ENGINEER): - viral URI - tx with mucinex D, prednisone - f/u prn Numbness and tingling 03/20/2024 Assessment & Plan (04/15/2024 2:57 PM CDT): - neg EMG but still appears to be overuse injury given worse with typing, improves with rest - will ref to occupational therapy and have pt wear cock up wrist splint - f/u if no improvement and will ref to neuro Assessment & Plan (03/20/2024 3:05 PM CDT): - suspect ulnar nerve compression in elbow - will get EMG Acute right ankle pain 12/26/2023 Assessment & Plan (12/26/2023 9:37 AM CDT): - severe ankle sprain - xray neg for fx - home PT, NSAIDS Right foot pain 12/26/2023 Assessment & Plan (12/26/2023 9:37 AM CDT): - xray neg for fx - home PT - NSAIDS Otalgia of both ears 10/06/2023 Recurrent acute otitis media 10/06/2023 Dysfunction of both eustachian tubes 09/05/2023 Assessment & Plan (09/05/2023 8:00 AM CDT): - uncontrolled - prednisone burst, flonase, zyrtec, sudafed - f/u with ENT as planned Allergic rhinitis due to allergen 09/05/2023 Assessment & Plan (09/05/2023 8:01 AM CDT): - uncontrolled - continue zyrtec and flonase Chronic middle ear effusion, bilateral Assessment & Plan (08/09/2023 10:01 AM INDUSTRIAL HEALTH ENGINEER): - uncontrolled - start flonase and zyrtec - ref to ENT for eval Family hx of colon cancer 04/06/2022 Cold sore 06/22/2021 Assessment & Plan (06/27/2023 3:43 PM INDUSTRIAL HEALTH ENGINEER): - stable - continue current medication Assessment & Plan (06/22/2021 2:01 PM INDUSTRIAL HEALTH ENGINEER): - uncontrolled - acyclovir Annual physical exam 10/16/2020 Assessment & Plan (08/09/2023 10:01 AM INDUSTRIAL HEALTH ENGINEER): - Reviewed with the patient BMI, blood pressure, diet, exercise, and encouraged healthy lifestyle choices. - Screened for high risk behaviors, diet and exercise habits, and symptoms of depression. - check screening labs - encouraged regular exercise and weight loss Assessment & Plan (04/06/2022 4:41 PM CDT): - Reviewed with the patient BMI, blood pressure, diet, exercise, and encouraged healthy lifestyle choices. - Screened for high risk behaviors, diet and exercise habits, and symptoms of depression. - check screening labs - encouraged regular exercise and weight loss Assessment & Plan (10/16/2020 11:45 AM CDT): - Reviewed with the patient BMI, blood pressure, diet, exercise, and encouraged healthy lifestyle choices. - Screened for high risk behaviors, diet and exercise habits, and symptoms of depression. - check screening labs - encouraged regular exercise and weight loss Appendicitis 10/16/2020 Assessment & Plan (10/16/2020 11:46 AM CDT): - healing well - incision sites without signs of infection - paperwork filled out for FMLA Class 3 severe obesity due t o excess calories without serious comorbidity with body mass index (BMI) of 40.0 to 44.9 in adult 10/16/2020 Assessment & Plan (04/15/2024 2:57 PM CDT): - rec healthy diet and regular exercise Assessment & Plan (03/20/2024 3:05 PM CDT): - rec healthy diet and regular exercise Assessment & Plan (12/26/2023 9:38 AM CDT): - rec healthy diet and regular exercise - discussed weight loss medications, diet, exercise Assessment & Plan (09/05/2023 8:01 AM CDT): - rec healthy diet and regular exercise Assessment & Plan (10/16/2020 11:46 AM CDT): - discussed risks associated with obesity to include heart disease, hyperlipidemia, KELSIE, Diabetes, and OA. - recommend weight loss via diet and exercise - I recommend a healthy diet of 1800 calories per day or less with plenty of fresh fruits and vegetables, whole grains, lean meats and fatty fish such as salmon - I recommend regular exercise of at least 30 minutes 4-5x/week to maintain a healthy heart, increase weight loss, and lower your blood pressure Resolved Problems Problem Noted Date Diagnosed Date Resolved Date COVID-19 06/22/2021 03/20/2024 Assessment & Plan (01/12/2022 10:49 AM CDT): - prednisone, albuterol - restart advair - tessalon pearls - nsaids - f/u prn Assessment & Plan (06/22/2021 1:59 PM INDUSTRIAL HEALTH ENGINEER): - no longer infectious but having sequela from infection - continue tx as below Cough 06/22/2021 04/06/2022 Assessment & Plan (06/22/2021 2:00 PM INDUSTRIAL HEALTH ENGINEER): - uncontrolled - continue tessalon pearls, increase dose to 200mg tid - add advair diskus bid - prednisone taper. Bronchitis 06/22/2021 04/06/2022 Assessment & Plan (06/22/2021 2:00 PM INDUSTRIAL HEALTH ENGINEER): - uncontrolled - likely post infectious but concern for secondary bacterial infection - will tx with augmentin, prednisone, advair - f/u prn BRBPR (bright red blood per rectum) 10/16/2020 04/06/2022 Assessment & Plan (10/16/2020 11:47 AM CDT): - likely due to appendicitis - if sx return will send for colonoscopy Encounters Date Type Department Care Team Description 07/02/2024 2:45 PM INDUSTRIAL HEALTH ENGINEER Office Visit [facility] Primary Care [address] [place] [phone] Andrés Bran MD Acute non-recurrent maxillary sinusitis (Primary Dx); Chronic cough; Class 3 severe obesity due to excess calories without serious comorbidity with body mass index (BMI) of 40.0 to 44.9 in adult (HCC) 06/06/2024 7:45 AM INDUSTRIAL HEALTH ENGINEER Therapy [facility] Medical Office Bldg 1 OP Physical Therapy [address] [place] [phone] Range, Hattie, CABLE PLACER Numbness and tingling (Primary Dx); Right arm pain 06/03/2024 7:45 AM INDUSTRIAL HEALTH ENGINEER Therapy [facility] Medical Office Bldg 1 OP Physical Therapy [address] [place] [phone] Range, Hattie, CABLE PLACER Numbness and tingling (Primary Dx); Right arm pain 05/21/2024 1:30 PM INDUSTRIAL HEALTH ENGINEER Office Visit [facility] Primary Care [address] [place] [phone] Andrés Bran MD Acute nasopharyngitis (Primary Dx) 05/14/2024 7:00 AM INDUSTRIAL HEALTH ENGINEER Therapy [facility] Medical Office Bldg 1 OP Physical Therapy [address] [place] [phone] Mukesh, Adelfo, PT Numbness and tingling (Primary Dx); Right arm pain 05/14/2024 Plan of Care Documentation [facility] Office Bldg 1 OP Physical Therapy [address] [place] [phone] from Last 3 Months Immunizations Name Administration Dates Next Due Influenza, Quadrivalent, Yamilex l Culture-based MDCK, Preservative Free, Antibiotic Free, Intramuscular 04/01/2019 Influenza, Quadrivalent, Spl it, Preservative Free, Intramuscular 04/06/2022 Influenza, Unspecified 07/02/2024(Deferr ed: Patient Refused),03/19/2023(Deferred: Patient Refused),03/19/2021(Deferred: Patient Refused) Tdap 12/26/2023,11/18/2011 Surgical History Surgery Date Site/Laterality Comments CHOLECYSTECTOMY HYSTERECTOMY APPENDECTOMY WRIST FRACTURE SURGERY 06/19/2004 - 06/18/2005 FINGER SURGERY 06/19/2011 - 06/18/2012 Left HAND SURGERY TUBAL LIGATION Medical History Medical History Date Comments Ear problems Allergic rhinitis Tinnitus Family History Medical History Relation Name Comments Heart attack Father Abdirizak COPD Mother Nakul nelson Heart disease Mother Nakul nelson Hypertension Mother Nakul nelson Cancer Mother's Sister Amalia Relation Name Status Comments Father Abdirizak (Age 73) Mother Nakul nelson Alive Mother's Sister Amalia Social History Tobacco Use Types Packs/Day Years Used Date Smoking Tobacco: Never Smokeless Tobacco: Never AUDIT-C Answer Date Recorded Q1: How often do you have a drink containing alc ohol? Monthly or less 12/26/2023 Q2: How many drinks containi ng alcohol do you have on a typical day when you are drinking? 1 or 2 12/26/2023 Q3: How often do you have si x or more drinks on one occasion? Never 12/26/2023 PHQ-2 Answer Date Recorded PHQ-2 Total Score (If total score is 3 or more points, staff should administer the PHQ-9) 0 12/26/2023 Comments No Sex and Gender Information Value Date Recorded Sex Assigned at Not on file Legal Sex Female 4:22 AM INDUSTRIAL HEALTH ENGINEER Gender Identity Not on file Sexual Orientation Not on file Obstetrics History Para Term AB IAB SAB Ectopic Multiple Livin g Live Births 1 1 1 Date Outcome GA Total Labor Labor/2nd/3rd Weight Sex Type Anes PTL Priti A1 A5 Name Clin Term Last Filed Vital Signs Vital Sign Reading Time Taken Comments Blood Pressure 108/82 07/02/2024 2:44 PM INDUSTRIAL HEALTH ENGINEER Pulse 84 07/02/2024 2:44 PM INDUSTRIAL HEALTH ENGINEER Temperature 36.4 C (97.6 F) 07/02/2024 2:44 PM INDUSTRIAL HEALTH ENGINEER Respiratory Rate 20 07/02/2024 2:44 PM INDUSTRIAL HEALTH ENGINEER Oxygen Saturation 99% 07/02/2024 2:44 PM INDUSTRIAL HEALTH ENGINEER Inhaled Oxygen Concentration - - Weight 100.2 kg (221 lb) 07/02/2024 2:44 PM INDUSTRIAL HEALTH ENGINEER Height 149.9 cm (4' 11 ) 07/02/2024 2:44 PM INDUSTRIAL HEALTH ENGINEER Body Mass Index 44.64 07/02/2024 2:44 PM INDUSTRIAL HEALTH ENGINEER Plan of Treatment Health Maintenance Due Date Last Done Comments Hepatitis C Screening 1977 Hepatitis B Screening 12/18/1995 Covid-19 Vaccine ( season) 2024 01/13/2021 Influenza Vaccine (#1) 2024 04/06/2022, 2018 Regular Well Visit/Exam 18-64 08/09/2024 08/09/2023, 04/06/2022, 10/16/2020 Breast Cancer Screening-Mammogram 08/16/2024 08/16/2023, 04/29/2022 Depression Screening 12/25/2024 12/26/2023, 08/09/2023, 04/06/2022, Additional history exists Colon Cancer Screening-Colonoscopy 05/23/2027 05/23/2022 DTaP/Tdap/Td Vaccine (3 - Td or Tdap) 12/25/2033 12/26/2023, 11/18/2011 HPV Vaccines Aged Out No longer eligi ble based on patient's age to complete this topic Pneumococcal vaccine <65 Aged Out No longer eligible based on patient's age to complete this topic Procedures Procedure Name Priority Date/Time Associated Diagnosis Comments POC INFLUENZA A/B, COVID-19 ANTIGEN Routine 05/21/2024 1:15 PM INDUSTRIAL HEALTH ENGINEER Acute nasopharyngitis SCREENING MAMMOGRAM BILATERAL W DIDIER Schedule Routine, Read Routine (OP Routine) 08/16/2023 1:23 PM INDUSTRIAL HEALTH ENGINEER Encounter for screening mammogram for malignant neoplasm of breast COLONOSCOPY Routine 05/23/2022 from Last 3 Months or Most Recently Relevant to Health Maintenance Results * POC Influenza A/B, COVID-19 antigen (05/21/2024 1:15 PM INDUSTRIAL HEALTH ENGINEER) Influenza A Ag, POC Negative Negative Influenza B Ag, POC Negative Negative COVID-19 Ag POC Presumptive Negative Presumptive Negative, Invalid Nasal 05/21/2024 1:15 PM INDUSTRIAL HEALTH ENGINEER Andrés Bran MD POINT OF CARE TEST ORDER ZEKE Final Result * Screening Mammogram Bilateral W Didier (08/16/2023 1:23 PM INDUSTRIAL HEALTH ENGINEER) Anatomical Region Laterality Modality Breast Bilateral Mammography Impressions 08/16/2023 1:27 PM INDUSTRIAL HEALTH ENGINEER BI-RADS ATLAS category (overall): 1 - Negative There is no mammographic evidence of malignancy. A 1 year screening mammogram is recommended. The patient has been or will be contacted. We recommend annual screening mammography for women at average risk of breast cancer beginning at age 40, based on guidelines of the [place] [employer] (ACR Practice Parameter for the Performance of Screening and Diagnostic Mammography) and [place] [employer]nec[employer]. For women with and elevated risk of breast cancer, please refer to the ACR Practice Parameter for specific screening recommendations. The patient will be entered into a reminder system with a target due date of 1 year for her next screening exam. Narrative 08/16/2023 1:27 PM INDUSTRIAL HEALTH ENGINEER Screening Mammogram Bilateral W Didier: 08/16/23 The study was acquired using full field digital technology and interpreted from soft copy. 2D digital mammographic views, as well as 3D digital tomosynthesis were performed in the CC and MLO projections. CLINICAL: Encounter for screening mammogram for malignant neoplasm of breast. No relevant medical history has been documented for this patient. No known family history of breast cancer. COMPARISONS: 04/29/2022 SCREENING MAMMOGRAM BILATERAL W DIDIER BREAST TISSUE: The breasts are heterogeneously dense, which may obscure small masses. FINDINGS: There is no new suspicious finding in either breast on mammogram. Andrés Bran MD IMG MAMMO PROCEDURES Fin al Result * Colonoscopy (05/23/2022) Anatomical Region Laterality Modality Other Eduarda Tovar MD ENDOSCOPY PROCEDURES Natalya l Result from Last 3 Months or Most Recently Relevant to Health Maintenance Insurance [facility] CHO[facility] PLUS Care Teams Veterans Services Specialist Relationship Specialty Start Date End Date Bran, Andrés Perdomo, MD [facility] [place] [id number] PCP - General Family Medicine 10/06/20
--- OUTSIDE RECORDS SUMMARY | 2024-07-31 12:29 | XMS_ITS | Clinical Summary ---
Author Organization [facility] Address [facility] [place] [address] Care Team Providers Care Subway Car Repairer Name Role Phone Unavailable Primary Care Provider Unavailabl e Social History Tobacco Use Types Packs/Day Years Used Date Smoking Tobacco: Never Assessed Comments Unknown Sex and Gender Information Value Date Recorded Sex Assigned at Not on file Legal Sex Female 7:15 PM CDT Gender Identity Not on file Sexual Orientation Not on file Plan of Treatment Health Maintenance Due Date Last Done Comments Cervical Cancer Screening Pa p Smear (Age 30 to 64) Every 3 Years 1977 Colorectal Cancer Screening Colonoscopy (10 Years) 1977 Annual Physical 1980 Hepatitis C 12/18/1995 DTaP, Tdap and Td Vaccines ( 1 - Tdap) 1996 Hepatitis B Vaccines (1 of 3 - 19+ 3-dose series) 1996 Cervical Cancer Screening Pa p with HPV Testing (Age 30 to 64) Every 5 Years 12/18/2007 Cervical Cancer Screening with HPV 12/18/2007 Mammogram Screening 2017 COVID-19 Vaccine (2023-2 5 season) 2024 Influenza Adult (#1) 2024 Meningococcal B Vaccine Aged Out No l onger eligible based on patient's age to complete this topic Meningococcal Vaccine Aged Out No som tesha eligible based on patient's age to complete this topic Pneumococcal Vaccine: Pediat rics (0 to 5 Years) and At-Risk Patients (6 to 64 Years) Aged Out No longer eligible b ased on patient's age to complete this topic RSV Immunizations Under 20 Months Aged Out No longer eligible based on patient's age to complete this topic
--- OUTSIDE RECORDS SUMMARY | 2024-07-31 12:29 | XMS_ITS | Referral Summary ---
Author Organization [facility] at the Medical Office Building Address [address] [place] [phone] Care Team Providers Care Spin Table Operator Name Role Phone Andrés Bran MD Primary Care Provider + Encounters Date Type Department Care Team Description 07/02/2024 2:45 PM DOORPERSON OR LUGGAGE PORTER Office Visit [facility] Primary Care [address] [place] [phone] Andrés Bran MD Acute non-recurrent maxillary sinusitis (Primary Dx); Chronic cough; Class 3 severe obesity due to excess calories without serious comorbidity with body mass index (BMI) of 40.0 to 44.9 in adult (HCC) 06/06/2024 7:45 AM DOORPERSON OR LUGGAGE PORTER Therapy [facility] Medical Office Bldg 1 OP Physical Therapy [address] [place] [phone] Range, Hattie, VACUUM EVAPORATION OPERATOR Numbness and tingling (Primary Dx); Right arm pain 06/03/2024 7:45 AM DOORPERSON OR LUGGAGE PORTER Therapy [facility] Medical Office Bldg 1 OP Physical Therapy [address] [place] [phone] Range, Hattie, VACUUM EVAPORATION OPERATOR Numbness and tingling (Primary Dx); Right arm pain 05/21/2024 1:30 PM DOORPERSON OR LUGGAGE PORTER Office Visit [facility] Primary Care [address] [place] [phone] Andrés Bran MD Acute nasopharyngitis (Primary Dx) 05/14/2024 Plan of Care Documentation [facility] Medical Office Bldg 1 OP Physical Therapy [address] [place] [phone] 05/14/2024 7:00 AM DOORPERSON OR LUGGAGE PORTER Therapy [facility] Medical Office Bldg 1 OP Physical Therapy [address] [place] [phone] Mukesh, Adelfo, PT Numbness and tingling (Primary Dx); Right arm pain from Last 3 Months Allergies Active Allergy Reactions Criticality Noted Date [...] 05/21/2024 Assessment & Plan (05/21/2024 1:30 PM DOORPERSON OR LUGGAGE PORTER): - viral URI - tx with mucinex [...] bilateral Assessment & Plan (08/09/2023 10:01 AM DOORPERSON OR LUGGAGE PORTER): - uncontrolled - start flonase and zyrtec - ref to ENT for eval Family hx of colon cancer 04/06/2022 Cold sore 06/22/2021 Assessment & Plan (06/27/2023 3:43 PM DOORPERSON OR LUGGAGE PORTER): - stable - continue current medication Assessment & Plan (06/22/2021 2:01 PM DOORPERSON OR LUGGAGE PORTER): - uncontrolled - acyclovir Annual physical exam 10/16/2020 Assessment & Plan (08/09/2023 10:01 AM DOORPERSON OR LUGGAGE PORTER): - Reviewed with the patient BMI, blood [...] prn Assessment & Plan (06/22/2021 1:59 PM DOORPERSON OR LUGGAGE PORTER): - no longer infectious but having sequela from infection - continue tx as below Cough 06/22/2021 04/06/2022 Assessment & Plan (06/22/2021 2:00 PM DOORPERSON OR LUGGAGE PORTER): - uncontrolled - continue tessalon pearls, increase dose to 200mg tid - add advair diskus bid - prednisone taper. Bronchitis 06/22/2021 04/06/2022 Assessment & Plan (06/22/2021 2:00 PM DOORPERSON OR LUGGAGE PORTER): - uncontrolled - likely post infectious but concern for secondary bacterial infection - will tx with augmentin, prednisone, advair - f/u prn BRBPR (bright red blood per rectum) 10/16/2020 04/06/2022 Assessment & Plan (10/16/2020 11:47 AM CDT): - likely due to appendicitis - if sx return will send for colonoscopy Immunizations Name Administration Dates Next Due Influenza, Quadrivalent, Yamilex l Culture-based MDCK, Preservative Free, Antibiotic Free, Intramuscular 04/01/2019 Influenza, Quadrivalent, Spl it, Preservative Free, Intramuscular 04/06/2022 Influenza, Unspecified 07/02/2024(Deferr ed: Patient Refused),03/19/2023(Deferred: Patient Refused),03/19/2021(Deferred: Patient Refused) Tdap 12/26/2023,11/18/2011 Social History Tobacco Use Types Packs/Day Years [...] on file Legal Sex Female 4:22 AM DOORPERSON OR LUGGAGE PORTER Gender Identity Not on file Sexual Orientation Not on file Last Filed Vital Signs Vital Sign Reading Time Taken Comments Blood Pressure 108/82 07/02/2024 2:44 PM DOORPERSON OR LUGGAGE PORTER Pulse 84 07/02/2024 2:44 PM DOORPERSON OR LUGGAGE PORTER Temperature 36.4 C (97.6 F) 07/02/2024 2:44 PM DOORPERSON OR LUGGAGE PORTER Respiratory Rate 20 07/02/2024 2:44 PM DOORPERSON OR LUGGAGE PORTER Oxygen Saturation 99% 07/02/2024 2:44 PM DOORPERSON OR LUGGAGE PORTER Inhaled Oxygen Concentration - - Weight 100.2 kg (221 lb) 07/02/2024 2:44 PM DOORPERSON OR LUGGAGE PORTER Height 149.9 cm (4' 11 ) 07/02/2024 2:44 PM DOORPERSON OR LUGGAGE PORTER Body Mass Index 44.64 07/02/2024 2:44 PM DOORPERSON OR LUGGAGE PORTER Plan of Treatment Not on file Procedures Procedure Name Priority Date/Time Associated Diagnosis Comments POC INFLUENZA A/B, COVID-19 ANTIGEN Routine 05/21/2024 1:15 PM DOORPERSON OR LUGGAGE PORTER Acute nasopharyngitis SCREENING MAMMOGRAM BILATERAL W DIDIER Schedule Routine, Read Routine (OP Routine) 08/16/2023 1:23 PM DOORPERSON OR LUGGAGE PORTER Encounter for screening mammogram for malignant neoplasm of breast COLONOSCOPY Routine 05/23/2022 from Last 3 Months or Most Recently Relevant to Health Maintenance Results * POC Influenza A/B, COVID-19 antigen (05/21/2024 1:15 PM DOORPERSON OR LUGGAGE PORTER) Influenza A Ag, POC Negative Negative Influenza B Ag, POC Negative Negative COVID-19 Ag POC Presumptive Negative Presumptive Negative, Invalid Nasal 05/21/2024 1:15 PM DOORPERSON OR LUGGAGE PORTER us Andrés Bran MD POINT OF CARE TEST ORDER ZEKE Final Result * Screening Mammogram Bilateral W Didier (08/16/2023 1:23 PM DOORPERSON OR LUGGAGE PORTER) Anatomical Region Laterality Modality Breast Bilateral Mammography Impressions 08/16/2023 1:27 PM DOORPERSON OR LUGGAGE PORTER BI-RADS ATLAS category (overall): 1 - Negative There is no mammographic evidence of malignancy. A 1 year screening mammogram is recommended. The patient has been or will be contacted. We recommend annual screening mammography for women at average risk of breast cancer beginning at age 40, based on guidelines of the [place] [employer] (ACR Practice Parameter for the Performance of Screening and Diagnostic Mammography) and [place] [employer]. For women with and elevated risk of breast cancer, please refer to the ACR Practice Parameter for specific screening recommendations. The patient will be entered into a reminder system with a target due date of 1 year for her next screening exam. Narrative 08/16/2023 1:27 PM DOORPERSON OR LUGGAGE PORTER Screening Mammogram Bilateral W Didier: 08/16/23 The [...] Colonoscopy (05/23/2022) Anatomical Region Laterality Modality Other Historical Provider ENDOSCOPY PROCEDURES Natalya l Result from Last 3 Months or Most Recently Relevant to Health Maintenance Insurance [employer] [facility]US [facility] PL[facility] Care Teams Spin Table Operator Relationship Specialty Start Date End Date Andrés Bran MD [address] [place] [phone] PCP - General Family Medicine 10/06/20
[2024-07-31 12:36] VITALS: BP 151/78; PULSE 100; RESP 20; TEMP 36.6; O2SAT 100
--- NOTE | 2024-07-31 12:38 | ED_ITS ---
HPI - General Adult General Chief complaint: Upper Respiratory Infection Stated complaint: flu symptoms Time Seen by Provider: 07/31/24 12:39 Source: patient Mode of arrival: ambulatory Limitations: no limitations History of Present Illness HPI narrative: Here with flu like symptoms and exposure to flu. Terra is a 48-year-old female who presents today with symptoms onset this morning of headache, congestion, runny nose, cough, sneezing, and feeling tired. She additionally reports feeling nauseous and having no appetite. She reports her daughter has been diagnosed with influenza at home. She denies any sy mptoms prior to today. She reports taking DayQuil this morning at work with some relief of symptoms. She reports headache was not changed by DayQuil. She requests Tamiflu today if flu positive. All other systems reviewed and negative unless otherwise noted in HPI. Related Data Allergies Allergy/AdvReac Type Severity Reaction Status Date / Time hydromorphone Allergy Intermediate Itching Verified 07/31/24 12:34 adhesive tape AdvReac Itching Verified 07/31/24 12:34 Review of Systems Review of Systems: CONSTITUTIONAL: Denies fever, chills, or sweats. EYES: Denies visual changes, redness, or discharge. ENT: Reports rhinorrhea and congestion. denies sore throat or otalgia. CARDIOVASCULAR: Denies chest pain, palpitations, or edema. RESPIRATORY: Denies dyspnea or any trouble breathing. Reports cough. GASTROINTESTINAL: Denies abdominal pain, vomiting, or diarrhea. Reports decreased appetite and nausea. GENITOURINARY: Denies dysuria or hematuria. SKIN: Denies rash or itching. MUSCULOSKELETAL: Denies back pain, joint pain, or myalgia. Reports feeling tired. NEUROLOGIC: Denies numbness or weakness. Reports headache. PSYCHIATRIC: Denies anxiety or depression. All other systems reviewed are negative, except as documented in HPI. [facility] Past Medical History Medical History Endometriosis Finger amputation, traumatic Kidney stone Surgical History Surgical History Hx of appendectomy H/O: hysterectomy History of cholecystectomy Family History Family History Grandparent Cerebrovascular accident Other Diabetes mellitus Family history of cardiovascular disease Family history of coronary artery disease Family history of gallbladder disease Family history of lupus erythematosus Family history of malignant neoplasm of breast Family history of malignant neoplasm of cervix Family history of malignant neoplasm of ovary Family history of primary malignant neoplasm of liver Social History Social History Second hand tobacco smoke exposure: No Alcohol intake: never Gender identity (if verbalized by the patient): Female Comments At time of signature, I have reviewed and agree with nursing past medical, surg ical, social and family history unless otherwise noted. Please see nursing chart for further information. There is no relevant family history pertinent to the presenting complaint. Exam Narrative: GENERAL: This is a well-nourished, well-developed patient, in no apparent distress. HEAD: normocephalic, atraumatic. EYES: Sclera clear/white. Vision is grossly intact. EARS: External ears normal, auditory canals erythematous without drainage, TMs slightly erythematous bilaterally without perforation. Hearing grossly intact. NOSE: External nose normal, nares with redness, + rhinorrhea. THROAT: Mucous membranes moist, posterior pharynx clear drainage. NECK: Neck supple, non-tender without lymphadenopathy. CARDIOVASCULAR: Regular rate and rhythm without murmurs, gallops, or rubs. RESPIRATORY: Clear to auscultation. Breath sounds equal bilaterally. No wheezes, rales, or rhonchi. GASTROINTESTINAL: Abdomen soft, non-tender, nondistended. No guarding. SKIN: warm, Dry, intact with no suspicious lesions or rash, good texture and turgor. NEURO: awake, alert, and oriented to person, place and time. There were no obvious focal neurologic abnormalities. EXTREMITIES: No joint tenderness, effusion, or edema noted. Course Course Emergency Course: Patient is aware of diagnosis, understands and agrees to treatment plan. Anticipatory guidance was given. Patient agrees to follow-up as directed and is aware of reasons to seek care at the emergency department. Please be advised this is a medical document. It is intended for [id number] communication. It is written in medical language and may contain unfamiliar abbreviations or verbiage. Medical documents are intended to carry relevant information, facts as evident, and the clinical opinion of the practitioner at the time of the encounter. This report may have been done utilizing a voice recognition system. Attempts have been made to correct errors. However, there may be uncorrected grammatical, spelling, and recognition errors present. The file time of this note does not necessarily represent the time the patient was seen. Level of Care: Express Care Visit Vital Signs Vital signs: Vital Signs Temperature 36.6 C 07/31/24 12:36 Pulse Rate 100 07/31/24 12:36 Respiratory Rate 20 07/31/24 12:36 Blood Pressure 151/78 H 07/31/24 12:36 Pulse Oximetry 100 07/31/24 12:36 Oxygen Delivery Room Air 07/31/24 12:36 Temperature 36.6 C 07/31/24 12:36 Pulse Rate 100 07/31/24 12:36 Respiratory Rate 20 07/31/24 12:36 Blood Pressure 151/78 H 07/31/24 12:36 Pulse Oximetry 100 07/31/24 12:36 Oxygen Delivery Room Air 07/31/24 12:36 Noted. Blood pressure elevated today, likely related to [id number] DayQuil prior to visit. Medical Decision Making MDM Narrative Medical decision making narrative: Results of flu test reviewed with patient. She was positive for Flu A and negative for Flu B and COVID. Discussed physical exam findings with patient and reviewed prescriptions. Advised supportive measures and reviewed signs and symptoms for patient to return to clinic or go to the ER. Patient verbalized understanding. Differential Diagnosis Differential Diagnosis: URI vs Influenza vs COVID vs other viral illness Vital Signs Vital Signs: Vital Signs Temperature 36.6 C 07/31/24 12:36 Pulse Rate 100 07/31/24 12:36 Respiratory Rate 20 07/31/24 12:36 Blood Pressure 151/78 H 07/31/24 12:36 Pulse Oximetry 100 07/31/24 12:36 Oxygen Delivery Room Air 07/31/24 12:36 Temperature 36.6 C 07/31/24 12:36 Pulse Rate 100 07/31/24 12:36 Respiratory Rate 20 07/31/24 12:36 Blood Pressure 151/78 H 07/31/24 12:36 Pulse Oximetry 100 07/31/24 12:36 Oxygen Delivery Room Air 07/31/24 12:36 reviewed. Discharge Plan Discharge Clinical Impression: Influenza, Elevated BP without diagnosis of hypertension Patient Disposition: Home, Self-Care Condition: Stable Instructions: Antibiotic Form, Influenza (DC) Additional Instructions: You were diagnosed with influenza A today. You should wear a mask when out of the house until you are fever-free for 24 hours. Avoid going to places where you could spread the infection to people who are immunocompromised. Cover all coughs. Push fluids and eat foods that contain fluids such as applesauce. Rest. Do not share eating or drinking utensils. Use good handwashing techniques. Warm saltwater gargles for sore throat. May use over the counter acetaminophen and/or ibuprofen as needed and as directed on packaging for pain and fever. Take medications as prescribed. Read labels and use caution with over the counter products that can cause increased blood pressure. Use products labeled as safe for people with high blood pressure, such as Coriciden HBP as directed on packaging. Read packing of all over the counter medications and take them only as recommended on the label. If symptoms are not improving on this regimen, please return to clinic or follow up with PCP. If symptoms are worsening or you develop shortness of breath or trouble breathing or any other concerns, proceed immediately to the ER. Follow up with PCP and have blood pressure checked. Patient Language: Guinean Prescriptions: New ondansetron 4 mg tablet,disintegrating 4 mg PO Q6H PRN (Reason: nausea and vomiting) Qty: 15 0RF oseltamivir [Tamiflu] 75 mg capsule 75 mg PO Q12H 5 Days Qty: 10 0RF Follow-up/Referrals: Yina,Andrés Rondon MD [Primary Care Provider] - Stand Alone Forms: Work/School Release IP Time of Disposition: 12:50
[2024-07-31 13:01] LABS: EDCOVIDSCREEN Negative (Negative); EDINFLUASCREEN Positive (Negative); EDINFLUBSCREEN Negative (Negative)
== END 2024-07-31 12:58 | disposition home or self-care (01) ==
PROVIDERS: Emergency Provider Nurse Practitioner; PCP Family Medicine
DX: J10.1 Influenza due to other identified influenza virus with other respiratory manifestations (principal); R03.0 Elevated blood-pressure reading, without diagnosis of hypertension; Z20.822 Contact with and (suspected) exposure to COVID-19; N80.9 Endometriosis, unspecified
CPT/HCPCS: 87426; 87804; 99213; G0463

== ENCOUNTER 2024-09-12 17:03 | Emergency (ER) | payer OTHER, SELFPAY ==
--- OUTSIDE RECORDS SUMMARY | 2024-09-12 17:06 | XMS_ITS | Clinical Summary ---
Author Organization [facility] Address [facility] [place] [address] Care Team Providers Care Pallet Repairer Name Role Phone Unavailable Primary Care [...]
--- OUTSIDE RECORDS SUMMARY | 2024-09-12 17:06 | XMS_ITS | Referral Summary ---
Author Organization [facility] at the Medical Office Building Address [address] [place] [id number] Care Team Providers Care Associate Professor Of Archaeology Name Role Phone Andrés Bran MD Primary Care Provider + Encounters Date Type Department Care Team Description 07/02/2024 2:45 PM HORSE IDENTIFIER Office Visit [facility] Primary Care [address] [place] [address] [address] [place] [address] Andrés Bran MD Acute non-recurrent maxillary sinusitis (Primary Dx); Chronic cough; Class 3 severe obesity due to excess calories without serious comorbidity with body mass index (BMI) of 40.0 to 44.9 in adult (HCC) from Last 3 Months Allergies Active Allergy Reactions Criticality Noted Date Comments Hydromorphone Itching Low 10/12/2020 Medications cetirizine (ZyrTEC) 10 mg tabletIndicati ons:Chronic middle ear effusion, bilateral Take 1 tablet (10 mg total) by mouth daily as needed for allergies 90 tablet 4 08/09/19 24 Active fluticasone propionate (FLONASE) 50 mcg/actuation nasal sprayIndicatio ns:Chronic middle ear effusion, bilateral Administer 2 sprays into each nostril daily 3 each 4 08/09/19 24 Active albuterol HFA (PROVENTIL HFA,VENTOLIN HFA,PROAIR HFA) 90 mcg/actuation inhalerIndicat ions:Chronic cough Inhale 2 puffs every 6 (six) hours as needed for wheezing or shortness of breath 1 each 4 07/02/19 25 026 Active acyclovir (ZOVIRAX) 400 mg tabletIndicati ons:Cold sore TAKE 1 TABLET(400 MG) BY MOUTH FIVE TIMES DAILY FOR 5 DAYS NEEDED FOR COLD SORES 30 tablet 1 08/21/19 25 Active acyclovir (ZOVIRAX) 400 mg tabletIndicati ons:Cold sore Take 1 tablet (400 mg total) by mouth 5 (five) times a day for 5 days as needed for cold sores 30 tablet 1 01/30/20 24 025 Discontinued Active Problems Problem Noted Date Diagnosed Date Acute nasopharyngitis 05/21/2024 Assessment & Plan (05/21/2024 1:30 PM HORSE IDENTIFIER): - viral URI - tx with mucinex [...] bilateral Assessment & Plan (08/09/2023 10:01 AM HORSE IDENTIFIER): - uncontrolled - start flonase and zyrtec - ref to ENT for eval Family hx of colon cancer 04/06/2022 Cold sore 06/22/2021 Assessment & Plan (06/27/2023 3:43 PM HORSE IDENTIFIER): - stable - continue current medication Assessment & Plan (06/22/2021 2:01 PM HORSE IDENTIFIER): - uncontrolled - acyclovir Annual physical exam 10/16/2020 Assessment & Plan (08/09/2023 10:01 AM HORSE IDENTIFIER): - Reviewed with the patient BMI, blood [...] prn Assessment & Plan (06/22/2021 1:59 PM HORSE IDENTIFIER): - no longer infectious but having sequela from infection - continue tx as below Cough 06/22/2021 04/06/2022 Assessment & Plan (06/22/2021 2:00 PM HORSE IDENTIFIER): - uncontrolled - continue tessalon pearls, increase dose to 200mg tid - add advair diskus bid - prednisone taper. Bronchitis 06/22/2021 04/06/2022 Assessment & Plan (06/22/2021 2:00 PM HORSE IDENTIFIER): - uncontrolled - likely post infectious but concern for secondary bacterial infection - will tx with augmentin, prednisone, advair - f/u prn BRBPR (bright red blood per rectum) 10/16/2020 04/06/2022 Assessment & Plan (10/16/2020 11:47 AM CDT): - likely due to appendicitis - if sx return will send for colonoscopy Immunizations Immunization Administration Dates Next Due Influenza, Quadrivalent, Yamilex [...] on file Legal Sex Female 4:22 AM HORSE IDENTIFIER Gender Identity Not on file Sexual Orientation Not on file Last Filed Vital Signs Vital Sign Reading Time Taken Comments Blood Pressure 108/82 07/02/2024 2:44 PM HORSE IDENTIFIER Pulse 84 07/02/2024 2:44 PM HORSE IDENTIFIER Temperature 36.4 C (97.6 F) 07/02/2024 2:44 PM HORSE IDENTIFIER Respiratory Rate 20 07/02/2024 2:44 PM HORSE IDENTIFIER Oxygen Saturation 99% 07/02/2024 2:44 PM HORSE IDENTIFIER Inhaled Oxygen Concentration - - Weight 100.2 kg (221 lb) 07/02/2024 2:44 PM HORSE IDENTIFIER Height 149.9 cm (4' 11 ) 07/02/2024 2:44 PM HORSE IDENTIFIER Body Mass Index 44.64 07/02/2024 2:44 PM HORSE IDENTIFIER Plan of Treatment Not on file Procedures Procedure Name Priority Date/Time Associated Diagnosis Comments SCREENING MAMMOGRAM BILATERAL W BRIAN Schedule Routine, Read Routine (OP Routine) 08/16/2023 1:23 PM HORSE IDENTIFIER Encounter for screening mammogram for malignant neoplasm of breast COLONOSCOPY Routine 05/23/2022 from Last 3 Months or Most Recently Relevant to Health Maintenance Results * Screening Mammogram Bilateral W Brian (08/16/2023 1:23 PM HORSE IDENTIFIER) Anatomical Region Laterality Modality Breast Bilateral Mammography Impressions 08/16/2023 1:27 PM HORSE IDENTIFIER BI-RADS ATLAS category (overall): 1 - Negative There is no mammographic evidence of malignancy. A 1 year screening mammogram is recommended. The patient has been or will be contacted. We recommend annual screening mammography for women at average risk of breast cancer beginning at age 40, based on guidelines of the [place] [employer] (ACR Practice Parameter for the Performance of Screening and Diagnostic Mammography) and [place] [employer]. For women with and elevated risk of breast cancer, please refer to the ACR Practice Parameter for specific screening recommendations. The patient will be entered into a reminder system with a target due date of 1 year for her next screening exam. Narrative 08/16/2023 1:27 PM HORSE IDENTIFIER Screening Mammogram Bilateral W Brian: 08/16/23 The study was acquired using full [...] cancer. COMPARISONS: 04/29/2022 SCREENING MAMMOGRAM BILATERAL W BRIAN BREAST TISSUE: The breasts are heterogeneously dense, which may obscure small masses. FINDINGS: There is no new suspicious finding in either breast on mammogram. Andrés Bran MD IMG MAMMO PROCEDURES Fin al Result * Colonoscopy (05/23/2022) Anatomical Region Laterality Modality Other Historical Provider ENDOSCOPY PROCEDURES Natalya l Result from Last 3 Months or Most Recently Relevant to Health Maintenance Insurance [facility] Care Teams Associate Professor Of Archaeology Relationship Specialty Start Date End Date Andrés Bran MD [address] [place] [id number] PCP - General Family Medicine 10/06/20
--- OUTSIDE RECORDS SUMMARY | 2024-09-12 17:06 | XMS_ITS | Clinical Summary ---
Author Organization [facility] at the Medical Office Building Address [address] [place] [id number] Care Team Providers Care Order Picker Name Role Phone Andrés Bran MD Primary [...] 05/21/2024 Assessment & Plan (05/21/2024 1:30 PM WHEELCHAIR RENTAL CLERK): - viral URI - tx with mucinex [...] bilateral Assessment & Plan (08/09/2023 10:01 AM WHEELCHAIR RENTAL CLERK): - uncontrolled - start flonase and zyrtec - ref to ENT for eval Family hx of colon cancer 04/06/2022 Cold sore 06/22/2021 Assessment & Plan (06/27/2023 3:43 PM WHEELCHAIR RENTAL CLERK): - stable - continue current medication Assessment & Plan (06/22/2021 2:01 PM WHEELCHAIR RENTAL CLERK): - uncontrolled - acyclovir Annual physical exam 10/16/2020 Assessment & Plan (08/09/2023 10:01 AM WHEELCHAIR RENTAL CLERK): - Reviewed with the patient BMI, blood [...] prn Assessment & Plan (06/22/2021 1:59 PM WHEELCHAIR RENTAL CLERK): - no longer infectious but having sequela from infection - continue tx as below Cough 06/22/2021 04/06/2022 Assessment & Plan (06/22/2021 2:00 PM WHEELCHAIR RENTAL CLERK): - uncontrolled - continue tessalon pearls, increase dose to 200mg tid - add advair diskus bid - prednisone taper. Bronchitis 06/22/2021 04/06/2022 Assessment & Plan (06/22/2021 2:00 PM WHEELCHAIR RENTAL CLERK): - uncontrolled - likely post infectious but concern for secondary bacterial infection - will tx with augmentin, prednisone, advair - f/u prn BRBPR (bright red blood per rectum) 10/16/2020 04/06/2022 Assessment & Plan (10/16/2020 11:47 AM CDT): - likely due to appendicitis - if sx return will send for colonoscopy Encounters Date Type Department Care Team Description 07/02/2024 2:45 PM WHEELCHAIR RENTAL CLERK Office Visit [facility] Primary Care [address] [place] [address] [address] [place] [address] Andrés Bran MD Acute non-recurrent maxillary sinusitis (Primary Dx); Chronic cough; Class 3 severe obesity due to excess calories without serious comorbidity with body mass index (BMI) of 40.0 to 44.9 in adult (HCC) from Last 3 Months Immunizations Immunization Administration Dates Next Due Influenza, [...] on file Legal Sex Female 4:22 AM WHEELCHAIR RENTAL CLERK Gender Identity Not on file Sexual Orientation Not on file Obstetrics History Para Term AB IAB SAB Ectopic Multiple Livin g Live Births 1 1 1 Date Outcome GA Total Labor Labor/2nd/3rd Weight Sex Type Anes PTL Priti A1 A5 Name Clin Term Last Filed Vital Signs Vital Sign Reading Time Taken Comments Blood Pressure 108/82 07/02/2024 2:44 PM WHEELCHAIR RENTAL CLERK Pulse 84 07/02/2024 2:44 PM WHEELCHAIR RENTAL CLERK Temperature 36.4 C (97.6 F) 07/02/2024 2:44 PM WHEELCHAIR RENTAL CLERK Respiratory Rate 20 07/02/2024 2:44 PM WHEELCHAIR RENTAL CLERK Oxygen Saturation 99% 07/02/2024 2:44 PM WHEELCHAIR RENTAL CLERK Inhaled Oxygen Concentration - - Weight 100.2 kg (221 lb) 07/02/2024 2:44 PM WHEELCHAIR RENTAL CLERK Height 149.9 cm (4' 11 ) 07/02/2024 2:44 PM WHEELCHAIR RENTAL CLERK Body Mass Index 44.64 07/02/2024 2:44 PM WHEELCHAIR RENTAL CLERK Plan of Treatment Health Maintenance Due Date [...] Associated Diagnosis Comments SCREENING MAMMOGRAM BILATERAL W DIDIER Schedule Routine, Read Routine (OP Routine) 08/16/2023 1:23 PM WHEELCHAIR RENTAL CLERK Encounter for screening mammogram for malignant neoplasm of breast COLONOSCOPY Routine 05/23/2022 from Last 3 Months or Most Recently Relevant to Health Maintenance Results * Screening Mammogram Bilateral W Didier (08/16/2023 1:23 PM WHEELCHAIR RENTAL CLERK) Anatomical Region Laterality Modality Breast Bilateral Mammography Impressions 08/16/2023 1:27 PM WHEELCHAIR RENTAL CLERK BI-RADS ATLAS category (overall): 1 - Negative There is no mammographic evidence of malignancy. A 1 year screening mammogram is recommended. The patient has been or will be contacted. We recommend annual screening mammography for women at average risk of breast cancer beginning at age 40, based on guidelines of the [place] [employer] (ACR Practice Parameter for the Performance of Screening and Diagnostic Mammography) and [place] [employer]. For women with and elevated risk of breast cancer, please refer to the ACR Practice Parameter for specific screening recommendations. The patient will be entered into a reminder system with a target due date of 1 year for her next screening exam. Narrative 08/16/2023 1:27 PM WHEELCHAIR RENTAL CLERK Screening Mammogram Bilateral W Didier: 08/16/23 The [...] Colonoscopy (05/23/2022) Anatomical Region Laterality Modality Other us Historical Provider ENDOSCOPY PROCEDURES Natalya l Result from Last 3 Months or Most Recently Relevant to Health Maintenance Insurance [facility] Care Teams Order Picker Relationship Specialty Start Date End Date Andrés Bran MD [address] [address] PCP - General Family Medicine 10/06/20
[2024-09-12 17:12] VITALS: BP 131/74; PULSE 66; RESP 118; TEMP 36.3; O2SAT 100
--- NOTE | 2024-09-12 17:12 | ED.EYEPROB ---
HPI - Eye Problem General Chief complaint: Eye Problems Stated complaint: itchy eyes Time Seen by Provider: 09/12/24 17:12 Source: patient Mode of arrival: ambulatory Limitations: no limitations History of Present Illness HPI Narrative: 48-year-old female presents with complaint of redness, swelling and itching to bilateral eyelids For 1 week. No drainage. Taking a Zyrtec daily. No drainage from eyes. Has tried a Zaditor antihistamine eyedrop for 1 week with no relief. Feels that symptoms are not eyes but only to eyelids. No vision changes. All systems reviewed and negative except as noted above. Related Data Allergies Allergy/AdvReac Type Severity Reaction Status Date / Time hydromorphone Allergy Intermediate Itching Verified 09/12/24 17:19 adhesive tape AdvReac Itching Verified 09/12/24 17:19 Review of Systems Review of Systems: CONSTITUTIONAL: Denies fever, chills, or sweats. EYES: Denies visual changes, redness, or discharge. ENT: Denies rhinorrhea, congestion, sore throat, or otalgia. CARDIOVASCULAR: Denies chest pain, palpitations, or edema. RESPIRATORY: Denies cough or dyspnea. GASTROINTESTINAL: Denies abdominal pain, nausea, vomiting, or diarrhea. GENITOURINARY: Denies dysuria or hematuria. SKIN: Denies rash or itching. Reports redness, swelling and itching to bilateral Upper eyelids. MUSCULOSKELETAL: Denies back pain, joint pain, or myalgia. NEUROLOGIC: Denies headache, numbness, or weakness. PSYCHIATRIC: Denies anxiety or depression. All other systems reviewed are negative, except as documented in HPI. [facility] Past Medical History Medical History Endometriosis Finger amputation, traumatic Kidney stone Surgical History Surgical History Hx of appendectomy H/O: hysterectomy History of cholecystectomy Family History Family History Grandparent Cerebrovascular accident Other Diabetes mellitus Family history of cardiovascular disease Family history of coronary artery disease Family history of gallbladder disease Family history of lupus erythematosus Family history of malignant neoplasm of breast Family history of malignant neoplasm of cervix Family history of malignant neoplasm of ovary Family history of primary malignant neoplasm of liver Social History Social History Second hand tobacco smoke exposure: No Alcohol intake: never Gender identity (if verbalized by the patient): Female Comments At time of signature, agree with nursing past medical, surgical, social and family history. There is no relevant family history pertinent to the presenting complaint. Exam Narrative: GENERAL: This is a well-nourished, well-developed patient, in no apparent distress. HEAD: normocephalic, atraumatic. EYES: PERRL. Sclera clear/white. Vision is grossly intact. no discharge. EARS: External ears normal NOSE: External nose normal NECK: Neck supple, non-tender without lymphadenopathy, masses or thyromegaly. CARDIOVASCULAR: Regular rate and rhythm without murmurs, gallops, or rubs. RESPIRATORY: Clear to auscultation. Breath sounds equal bilaterally. No wheezes, rales, or rhonchi. SKIN: warm, Dry, intact with no suspicious lesions, good texture and turgor. erythema, scaly dry skin with mild swelling to bilateral upper eyelids NEURO: awake, alert, and oriented to person, place and time. There were no obvious focal neurologic abnormalities. EXTREMITIES: No joint tenderness, effusion, or edema noted. Course Course Level of Care: Express Care Visit Vital Signs Vital signs: reviewed MDM - Eye Problem MDM Narrative Medical decision making narrative: will treat pt's symptoms with oral prednisone, erythromycin and recommend aquaphor throughout the day to eyelids Discharge Plan Discharge Clinical Impression: Blepharitis Qualifiers: Laterality: bilateral Patient Disposition: Home, Self-Care Condition: Stable Instructions: Antibiotic Form, Blepharitis (ED) Additional Instructions: Apply antibiotic ointment as prescribed. continue Claritin daily. Take hydroxyzine as prescribed. This medication may cause drowsiness. Do not drive while taking it. Apply Aquaphor or Vaseline to eyelids in between erythromycin ointment for soothing and Moisturizing. See your primary care physician if not improving. Patient Language: [place] Prescriptions: New prednisone 20 mg tablet 40 mg PO DAILY 5 Days Qty: 10 0RF hydroxyzine HCl 25 mg tablet 25 mg PO Q6-8H PRN (Reason: itching) Qty: 30 0RF erythromycin 5 mg/gram (0.5 %) ointment 1 applic EACH EYE QID 14 Days Qty: 3.5 1RF Rx Instructions: Apply 4 times a day for 14 days and then nightly until resolved Follow-up/Referrals: Yina,Andrés Rondon MD [Primary Care Provider] - Time of Disposition: 17:26
== END 2024-09-12 17:31 | disposition home or self-care (01) ==
PROVIDERS: Emergency Provider Nurse Practitioner Family; PCP Family Medicine
DX: H01.004 Unspecified blepharitis left upper eyelid (principal); H01.001 Unspecified blepharitis right upper eyelid; N80.9 Endometriosis, unspecified
CPT/HCPCS: 99213; G0463